=== PATIENT | female | born 1970 | race African-American/Black ===

== ENCOUNTER 2022-07-04 20:03 | Emergency (ER) | payer MEDICAID ==
[~2022-07-04] VITALS: Ht 170.2 cm; Wt 73.6 kg
[2022-07-04 20:16] VITALS: TEMP 99.4
[2022-07-04 21:20] LABS: BASO % 0.5 % (0.0-2.0); EOS % 0.6 % (0.0-4.0); GRAN # 4.7 K/mm3 (1.4-6.5); GRAN % 70.5 % (42.2-75.2); HEMOGLOBIN 10.6 g/dl (12.5-16.0); LYMPH # 1.1 K/mm3 (1.2-3.4); LYMPH % 16.2 % (20.0-51.0); MEAN CELL VOLUME 88 fl (80.0-100.0); MEAN CORPUSCULAR HEMOGLOBIN 28 pg (27-31); MEAN CORPUSCULAR HGB CONC 32 g/dl (33.0-37.0); MEAN PLATELET VOLUME 9.4 fl (7.4-10.4); MONO # 0.8 K/mm3 (0.1-0.6); PLATELET COUNT 252 K/mm3 (130-400); RED BLOOD COUNT 3.74 M/mm3 (4.10-5.30); REDCELL DISTRIBUTION WIDTH-CV 17.8 % (11.5-14.5)
[2022-07-04 21:36] LABS: ALBUMIN 3.5 gm/dL (3.5-5.0); BILIRUBIN,TOTAL 0.4 mg/dL (0.2-1.2); CALCIUM 9.3 mg/dL (8.4-10.2); POTASSIUM 3.5 mmol/L (3.5-4.5); TOTAL PROTEIN 6.8 gm/dL (6.2-8.1)
[2022-07-04 22:08] LABS: TROPONIN-I 0.039 ng/mL (0.00-0.033)
[2022-07-04 23:07] LABS: COLLECTION METHOD CLEAN CATCH
[2022-07-04 23:21] LABS: CREATININE, serum 5.52 mg/dL (0.57-1.11)
[2022-07-04 23:30] LABS: AMORPHOUS CRYSTAL Present (NOT PRESENT); MUCOUS Present (NOT PRESENT); URINE BACTERIA Rare /hpf (NONE SEEN)
[2022-07-04 23:32] LABS: URINE COLOR Yellow (YELLOW)
[2022-07-04 23:33] LABS: URINE APPEARANCE Hazy (CLEAR/HAZY); URINE BLOOD TRACE-LYSED (NEGATIVE); URINE GLUCOSE 3+ (NEGATIVE); URINE KETONE 1+ (NEGATIVE); URINE NITRATE Negative (NEGATIVE); URINE PROTEIN(semi-quant) 3+ (NEGATIVE); URINE UROBILINOGEN 0.2 (NEGATIVE)
[2022-07-05 07:36] VITALS: BP 146/75; PULSE 77
== END 2022-07-05 07:45 | disposition short-term general hospital (02) ==
LOC: COL.ER 20:03
PROVIDERS: Nurse Practitioner Primary Care
DX: I13.2 Hypertensive heart and chronic kidney disease with heart failure and with stage 5 chronic kidney disease, or end stage renal disease (principal); E11.65 Type 2 diabetes mellitus with hyperglycemia; E11.22 Type 2 diabetes mellitus with diabetic chronic kidney disease; I50.9 Heart failure, unspecified; N18.5 Chronic kidney disease, stage 5; R09.02 Hypoxemia; R77.8 Other specified abnormalities of plasma proteins; Z28.310 Unvaccinated for COVID-19; Z99.2 Dependence on renal dialysis; Z20.822 Contact with and (suspected) exposure to COVID-19
CPT/HCPCS: J1815; J2543; J3370; J7050

== ENCOUNTER 2022-12-10 02:17 | Inpatient (IN) | payer MEDICAID ==
[2022-12-10] VITALS (850 sets, daily range): BP systolic 168–184; BP diastolic 40–88; PULSE 78–88; TEMP 97.8–98.3; O2SAT 79–100
[~2022-12-10] VITALS: Ht 170.2 cm; Wt 73.7 kg
[2022-12-10] MEDS ORDERED: APRESOLINE 25MG25 MG PO (03:11)
[2022-12-10] MEDS ORDERED: NORVASC 10MG10 MG PO (03:12)
[2022-12-10] MEDS ORDERED: LANTUS SOLOS100 U/ML SQ (03:12)
[2022-12-10] MEDS ORDERED: COREG 25MG25 MG/TAB PO (03:12)
[2022-12-10] MEDS ORDERED: INSULIN LI100 UNIT/2 SQ (03:12)
[2022-12-10] MEDS ORDERED: COMBIRESP IH (03:12)
[2022-12-10 05:51] LABS: ALBUMIN 3.2 gm/dL (3.5-5.0); BILIRUBIN,TOTAL 0.3 mg/dL (0.2-1.2); CALCIUM 9.2 mg/dL (8.4-10.2); CREATININE, serum 5.4 mg/dL (0.57-1.11); PHOSPHOROUS 5.5 mg/dL (2.3-4.7); POTASSIUM 3.5 mmol/L (3.5-4.5); TOTAL PROTEIN 6.8 gm/dL (6.2-8.1)
[2022-12-10 07:28] LABS: CALCIUM 9.2 mg/dL (8.4-10.2); CREATININE, serum 5.28 mg/dL (0.57-1.11); POTASSIUM 3.6 mmol/L (3.5-4.5)
[2022-12-10 09:43] LABS: CALCIUM 8.3 mg/dL (8.4-10.2); CREATININE, serum 4.68 mg/dL (0.57-1.11); POTASSIUM 3.5 mmol/L (3.5-4.5)
[2022-12-10 11:17] LABS: BASO % 0.2 % (0.0-2.0); EOS % 0.1 % (0.0-4.0); GRAN # 11.9 K/mm3 (1.4-6.5); GRAN % 87.6 % (42.2-75.2); HEMOGLOBIN 10.1 g/dl (12.5-16.0); LYMPH # 0.7 K/mm3 (1.2-3.4); LYMPH % 5.4 % (20.0-51.0); MEAN CELL VOLUME 86 fl (80.0-100.0); MEAN CORPUSCULAR HEMOGLOBIN 29 pg (27-31); MEAN CORPUSCULAR HGB CONC 34 g/dl (33.0-37.0); MEAN PLATELET VOLUME 9.8 fl (7.4-10.4); MONO # 0.9 K/mm3 (0.1-0.6); MONO % 6.4 % (1.7-9.3); PLATELET COUNT 222 K/mm3 (130-400); RED BLOOD COUNT 3.47 M/mm3 (4.10-5.30); REDCELL DISTRIBUTION WIDTH-CV 14.6 % (11.5-14.5)
[2022-12-10 11:18] LABS: HEMATOCRIT 29.8 % (37.0-47.0)
[2022-12-10 11:34] LABS: CALCIUM 9.6 mg/dL (8.4-10.2); CREATININE, serum 5.23 mg/dL (0.57-1.11); POTASSIUM 3.8 mmol/L (3.5-4.5)
[2022-12-10 13:38] LABS: CALCIUM 9.6 mg/dL (8.4-10.2); CREATININE, serum 5.14 mg/dL (0.57-1.11)
[2022-12-10 18:30] LABS: CREATININE, serum 5.15 mg/dL (0.57-1.11); POTASSIUM 3.7 mmol/L (3.5-4.5)
[2022-12-10 20:16] LABS: CALCIUM 9.1 mg/dL (8.4-10.2); CREATININE, serum 5.11 mg/dL (0.57-1.11); POTASSIUM 3.6 mmol/L (3.5-4.5)
[2022-12-10 22:10] LABS: CREATININE, serum 4.99 mg/dL (0.57-1.11); POTASSIUM 3.7 mmol/L (3.5-4.5)
[2022-12-11] VITALS (910 sets, daily range): BP systolic 141–167; BP diastolic 59–94; PULSE 79–87; TEMP 97.8–99.4; O2SAT 85–100
[2022-12-11 04:22] LABS: BASO # 0.1 K/mm3 (0.0-0.2); BASO % 0.4 % (0.0-2.0); EOS % 0.1 % (0.0-4.0); GRAN # 14.6 K/mm3 (1.4-6.5); HEMATOCRIT 30.2 % (37.0-47.0); HEMOGLOBIN 10.2 g/dl (12.5-16.0); LYMPH # 1.4 K/mm3 (1.2-3.4); LYMPH % 8.5 % (20.0-51.0); MEAN CELL VOLUME 87 fl (80.0-100.0); MEAN CORPUSCULAR HEMOGLOBIN 30 pg (27-31); MEAN CORPUSCULAR HGB CONC 34 g/dl (33.0-37.0); MEAN PLATELET VOLUME 9.8 fl (7.4-10.4); MONO # 0.8 K/mm3 (0.1-0.6); MONO % 4.5 % (1.7-9.3); PLATELET COUNT 256 K/mm3 (130-400); RED BLOOD COUNT 3.46 M/mm3 (4.10-5.30); REDCELL DISTRIBUTION WIDTH-CV 15.2 % (11.5-14.5)
[2022-12-11 04:39] LABS: CALCIUM 8.9 mg/dL (8.4-10.2); CREATININE, serum 4.78 mg/dL (0.57-1.11); POTASSIUM 3.8 mmol/L (3.5-4.5)
[2022-12-12] VITALS (810 sets, daily range): BP systolic 103–167; BP diastolic 51–85; PULSE 70–88; TEMP 98–99.4; O2SAT 84–100
[2022-12-12 05:09] LABS: BASO % 0.4 % (0.0-2.0); GRAN # 6.3 K/mm3 (1.4-6.5); GRAN % 81.6 % (42.2-75.2); LYMPH # 0.8 K/mm3 (1.2-3.4); LYMPH % 10.7 % (20.0-51.0); MEAN CORPUSCULAR HGB CONC 32 g/dl (33.0-37.0); MEAN PLATELET VOLUME 10.3 fl (7.4-10.4); MONO # 0.5 K/mm3 (0.1-0.6); MONO % 6.8 % (1.7-9.3); PLATELET COUNT 201 K/mm3 (130-400); RED BLOOD COUNT 3.03 M/mm3 (4.10-5.30); REDCELL DISTRIBUTION WIDTH-CV 15.8 % (11.5-14.5)
[2022-12-12 05:12] LABS: HEMATOCRIT 28.1 % (37.0-47.0); MEAN CELL VOLUME 93 fl (80.0-100.0); MEAN CORPUSCULAR HEMOGLOBIN 30 pg (27-31)
[2022-12-12 05:22] LABS: CALCIUM 8.4 mg/dL (8.4-10.2); CREATININE, serum 5.46 mg/dL (0.57-1.11); POTASSIUM 4.9 mmol/L (3.5-4.5)
[2022-12-12 06:35] LABS: MAGNESIUM 1.7 mg/dL (1.6-2.6)
[2022-12-12 08:04] LABS: CALCIUM 8.2 mg/dL (8.4-10.2); CREATININE, serum 5.51 mg/dL (0.57-1.11); POTASSIUM 3.8 mmol/L (3.5-4.5)
[2022-12-12 10:34] LABS: CALCIUM 8.8 mg/dL (8.4-10.2); CREATININE, serum 3.89 mg/dL (0.57-1.11); POTASSIUM 3.5 mmol/L (3.5-4.5)
[2022-12-12 12:20] LABS: CALCIUM 8.5 mg/dL (8.4-10.2); CREATININE, serum 2.29 mg/dL (0.57-1.11); POTASSIUM 3.6 mmol/L (3.5-4.5)
[2022-12-12 14:01] LABS: CALCIUM 8.3 mg/dL (8.4-10.2); CREATININE, serum 2.45 mg/dL (0.57-1.11); POTASSIUM 3.9 mmol/L (3.5-4.5)
[2022-12-12 18:29] LABS: CALCIUM 8.4 mg/dL (8.4-10.2); CREATININE, serum 2.78 mg/dL (0.57-1.11); POTASSIUM 4.2 mmol/L (3.5-4.5)
[2022-12-13] VITALS (619 sets, daily range): BP systolic 112–160; BP diastolic 63–88; PULSE 72–78; TEMP 98–99.2; O2SAT 74–100
[2022-12-13 06:08] LABS: BASO % 0.7 % (0.0-2.0); EOS # 0.1 K/mm3 (0.0-0.7); EOS % 0.9 % (0.0-4.0); GRAN # 3.7 K/mm3 (1.4-6.5); GRAN % 63.9 % (42.2-75.2); LYMPH # 1.4 K/mm3 (1.2-3.4); LYMPH % 24.7 % (20.0-51.0); MEAN CELL VOLUME 93 fl (80.0-100.0); MEAN CORPUSCULAR HGB CONC 32 g/dl (33.0-37.0); MEAN PLATELET VOLUME 10.4 fl (7.4-10.4); MONO # 0.6 K/mm3 (0.1-0.6); MONO % 9.6 % (1.7-9.3); PLATELET COUNT 197 K/mm3 (130-400); RED BLOOD COUNT 3.25 M/mm3 (4.10-5.30); REDCELL DISTRIBUTION WIDTH-CV 15.9 % (11.5-14.5)
[2022-12-13 06:11] LABS: HEMATOCRIT 30.2 % (37.0-47.0); HEMOGLOBIN 9.5 g/dl (12.5-16.0); MEAN CORPUSCULAR HEMOGLOBIN 29 pg (27-31)
[2022-12-13 06:29] LABS: CALCIUM 8.5 mg/dL (8.4-10.2); POTASSIUM 4.6 mmol/L (3.5-4.5)
[2022-12-14 03:42] VITALS: BP 154/66; PULSE 79; TEMP 99.7
[2022-12-14 07:22] VITALS: BP 136/65; PULSE 79; TEMP 99.4
[2022-12-14 08:53] LABS: BASO % 0.7 % (0.0-2.0); EOS # 0.1 K/mm3 (0.0-0.7); EOS % 1.2 % (0.0-4.0); GRAN # 3.9 K/mm3 (1.4-6.5); GRAN % 65.5 % (42.2-75.2); LYMPH # 1.4 K/mm3 (1.2-3.4); LYMPH % 24.2 % (20.0-51.0); MEAN CELL VOLUME 91 fl (80.0-100.0); MEAN CORPUSCULAR HGB CONC 33 g/dl (33.0-37.0); MEAN PLATELET VOLUME 10.1 fl (7.4-10.4); MONO # 0.5 K/mm3 (0.1-0.6); MONO % 8.1 % (1.7-9.3); PLATELET COUNT 190 K/mm3 (130-400); RED BLOOD COUNT 3.16 M/mm3 (4.10-5.30); REDCELL DISTRIBUTION WIDTH-CV 15.3 % (11.5-14.5)
[2022-12-14 08:55] LABS: HEMATOCRIT 28.6 % (37.0-47.0); HEMOGLOBIN 9.3 g/dl (12.5-16.0); MEAN CORPUSCULAR HEMOGLOBIN 29 pg (27-31)
[2022-12-14 09:12] LABS: CALCIUM 8.6 mg/dL (8.4-10.2); CREATININE, serum 2.97 mg/dL (0.57-1.11); POTASSIUM 4.1 mmol/L (3.5-4.5)
[2022-12-14] MEDS ORDERED: MONODOX100 PO (09:34)
[2022-12-14] MEDS ORDERED: AMOXICILLIN/CLA1 TA1 PO (09:35)
[2022-12-14 11:40] VITALS: BP 163/94
[2022-12-14 16:11] VITALS: BP 119/60; PULSE 75; TEMP 99
== END 2022-12-14 20:30 | disposition home or self-care (01) | DRG 637 ==
LOC: IMCU 02:17 → ICU 04:55 → SURG 12-11 17:53 → ICU 12-12 06:09 → MEDICAL 12-13 15:02
PROVIDERS: Nurse Practitioner Family; Physician Assistant; ADMIT Student in an Organized Health Care Education/Training Program
PROC: 06HN33Z Insertion of Infusion Device into Left Femoral Vein, Percutaneous Approach (ICD-10-PCS; 2022-12-10)
PROC: 5A1D70Z Performance of Urinary Filtration, Intermittent, Less than 6 Hours Per Day (ICD-10-PCS; principal; 2022-12-12)
DX: E11.10 Type 2 diabetes mellitus with ketoacidosis without coma (principal); G93.41 Metabolic encephalopathy; J18.9 Pneumonia, unspecified organism; J96.01 Acute respiratory failure with hypoxia; N18.6 End stage renal disease; I13.2 Hypertensive heart and chronic kidney disease with heart failure and with stage 5 chronic kidney disease, or end stage renal disease; I50.32 Chronic diastolic (congestive) heart failure; J90 Pleural effusion, not elsewhere classified; E87.0 Hyperosmolality and hypernatremia; E11.649 Type 2 diabetes mellitus with hypoglycemia without coma; E11.22 Type 2 diabetes mellitus with diabetic chronic kidney disease; D72.829 Elevated white blood cell count, unspecified; I08.1 Rheumatic disorders of both mitral and tricuspid valves; E87.70 Fluid overload, unspecified; E87.8 Other disorders of electrolyte and fluid balance, not elsewhere classified; D63.1 Anemia in chronic kidney disease; Z99.2 Dependence on renal dialysis; Z89.511 Acquired absence of right leg below knee; Z79.4 Long term (current) use of insulin
CPT/HCPCS: J0360; J0696; J1644; J1815; J2060; J2550; J3480